=== PATIENT | female | born 1985 | race Caucasian/White ===

== ENCOUNTER 2017-05-29 08:00 | Outpatient (CLI) | payer OTHER ==
[2017-05-30 08:47] LABS: HEPATITIS C ANTIBODY NON-REACTIVE (NON-REACTIVE)
[2017-05-30 13:52] LABS: HIV AG/AB 4TH GEN NON-REACTIVE (NON-REACTIVE)
[2017-05-31 13:51] LABS: HSV 2 IGG TYPE SPECIFIC AB <0.90 index
== END 2017-05-29 08:01 | disposition home or self-care (01) ==
LOC: LAB.S 08:00
PROVIDERS: ATTEND Nurse Practitioner Family
DX: Z11.3 Encounter for screening for infections with a predominantly sexual mode of transmission (principal); Z20.2 Contact with and (suspected) exposure to infections with a predominantly sexual mode of transmission
CPT/HCPCS: 36415; 81599; 86695; 86696; 86803; 87389; 87491; 87591

== ENCOUNTER 2017-06-19 12:00 | Outpatient (CLI) | payer OTHER ==
--- NOTE | 2017-06-19 15:34 | Ultrasound Report ---
PELVIC ULTRASOUND: 06/19/2017 HISTORY: Pelvic pain, vaginal bleeding. TECHNIQUE: Real-time scanning by the dry mill worker with saved static images were reviewed. Transabdominal approach for global evaluation. Transvaginal scanning for detailed assessment of the endometrium and adnexal structures. Last menstrual period: 05/28/2017. FINDINGS: Anteverted uterus, 9.3 x 5.1 x 6.2 cm, volume 153 mL. Normal echotexture. Endometrial echo thickness: 15.6 mm. An IUD is normally positioned within the endometrial canal. There is a 5 x 3 mm hypoechoic avascular area within the endometrium of uncertain significance. Right ovary: 2.9 x 1.7 x 1.6 cm, volume 4.1 mL. Normal echotexture and blood flow. Left ovary: 5.9 x 2.4 x 4.4 cm, volume 32.5 mL. There is a simple cyst 3.4 x 2.1 x 3.5 cm, otherwise normal left ovary echotexture. Increased blood flow to the left ovary in comparison to the right. Free fluid: Moderate amount. IMPRESSION: 1. NORMAL ENDOMETRIAL ECHO THICKNESS FOR THIS PHASE OF THE MENSTRUAL CYCLE. IUD IN PLACE. A 5 X 3 MM AVASCULAR HYPOECHOIC AREA WITHIN THE ENDOMETRIUM IS OF UNCERTAIN SIGNIFICANCE. 2. SIMPLE LEFT OVARIAN CYST 3.4 X 2.1 X 3.5 CM. 3. MODERATE AMOUNT OF FREE FLUID. TD: 06/19/2017 15:33 MTDD
== END 2017-06-19 12:01 | disposition home or self-care (01) ==
LOC: DI 12:00
PROVIDERS: ATTEND Nurse Practitioner Family
DX: N83.292 Other ovarian cyst, left side (principal)
CPT/HCPCS: 76830; 76856

== ENCOUNTER 2017-06-23 15:30 | Outpatient (CLI) | payer OTHER | END 2017-06-23 15:31 | disposition home or self-care (01) | LOC: LAB.R 15:30 | PROVIDERS: ATTEND Nurse Practitioner Family | DX: A56.2 Chlamydial infection of genitourinary tract, unspecified (principal) | CPT/HCPCS: 87491; 87591 ==

== ENCOUNTER 2017-07-31 15:00 | Outpatient (CLI) | payer OTHER | END 2017-07-31 15:01 | disposition home or self-care (01) | LOC: LAB.R 15:00 | PROVIDERS: ATTEND Obstetrics & Gynecology | DX: Z11.3 Encounter for screening for infections with a predominantly sexual mode of transmission (principal) | CPT/HCPCS: 87491; 87591 ==

== ENCOUNTER 2018-04-03 08:00 | Outpatient (CLI) | payer OTHER ==
[2018-04-04 10:56] LABS: BILIRUBIN,URINE NEGATIVE (NEGATIVE); GLUCOSE, URINE (UA) NEGATIVE (NEGATIVE); KETONES,URINE (UA) NEGATIVE (NEGATIVE); LEUKOCYTE ESTERASE, URINE MODERATE (NEGATIVE); NITRITE,URINE NEGATIVE (NEGATIVE); OCCULT BLOOD,URINE TRACE-INTA (NEGATIVE); PH,URINE 8.5 PH (5.0-7.5); PROTEIN,URINE NEGATIVE (NEGATIVE); UROBILINOGEN,URINE 1 (NORMAL) E.U./dL (NORMAL)
[2018-04-04 10:58] LABS: BACTERIA,URINE Moderate /HPF (None Seen); CLARITY,URINE CLOUDY (CLEAR); SQUAMOUS EPITHELIAL CELL,UR RARE Squamous (<= Few)
== END 2018-04-03 23:59 ==
LOC: LAB.R 08:00
PROVIDERS: ATTEND Nurse Practitioner
DX: R39.15 Urgency of urination (principal)
CPT/HCPCS: 81001; 81003; 87086

== ENCOUNTER 2018-12-04 13:46 | Outpatient (CLI) | payer OTHER ==
[2018-12-04 17:23] LABS: BASOPHILS # (AUTO) 0.1 10^3/uL (0.0-0.1); BASOPHILS % (AUTO) 1.1 %; EOSINOPHILS # (AUTO) 0.2 10^3/uL (0.0-0.7); EOSINOPHILS % (AUTO) 4.2 %; HGB - HEMOGLOBIN 10.5 g/dL (12.0-16.0); LYMPHOCYTES # (AUTO) 1.5 10^3/uL (1.5-3.5); LYMPHOCYTES % (AUTO) 32.2 %; MEAN CORPUSCULAR HEMOGLOBIN 26.8 pg (27.0-31.0); MEAN CORPUSCULAR HGB CONC 30.5 g/dL (32.0-36.0); MEAN CORPUSCULAR VOLUME 87.8 fL (81.0-99.0); MEAN PLATELET VOLUME 12.2 fL (7.9-10.8); MONOCYTES # (AUTO) 0.4 10^3/uL (0.0-1.0); MONOCYTES % (AUTO) 8.5 %; NEUTROPHILS # (AUTO) 2.5 10^3/uL (1.5-6.6); NEUTROPHILS % (AUTO) 53.6 %; PLT - PLATELET COUNT 226 10^3/uL (130-450); RED BLOOD COUNT 3.92 10^6/uL (4.20-5.40); RED CELL DISTRIBUTION WIDTH 16.9 % (12.0-15.0); WHITE BLOOD COUNT 4.6 x10^3/uL (4.8-10.8)
[2018-12-04 18:11] LABS: ALBUMIN/GLOBULIN RATIO 1.2 (1.0-2.2); BILIRUBIN,TOTAL 0.5 mg/dL (0.2-1.0); CALCIUM 8.8 mg/dL (8.5-10.3); CREATININE 0.6 mg/dL (0.4-1.0); TOTAL PROTEIN 7.3 g/dL (6.7-8.2)
== END 2018-12-04 13:47 | disposition home or self-care (01) ==
LOC: LAB.S 13:46
PROVIDERS: ATTEND Registered Nurse
DX: F32.9 Major depressive disorder, single episode, unspecified (principal)
CPT/HCPCS: 36415; 80053; 84443; 85025